=== PATIENT | male | born 1940 | race Caucasian/White ===

== ENCOUNTER → 2016-06-21 | Outpatient (CLI) | payer BC ==
[~2016-06-21] MED LIST: ASPCH81; SIMV40TA2 PO
== END | disposition home or self-care (01) ==
LOC: C.LAB 14:18
PROVIDERS: ATTEND Urology
DX: N40.1 Benign prostatic hyperplasia with lower urinary tract symptoms (principal)

== ENCOUNTER → 2016-11-02 | Outpatient (CLI) | payer BC ==
[2016-11-02 09:31] LABS: BASO % 1.3 %; BASO ABS # 0.05 K/uL (0-0.2); COMPLETE YES; EOS % 3.3 %; HEMATOCRIT 47.3 % (42-52); IG% 0.3 %; LYMPH % 28.5 %; LYMPH ABS # 1.12 K/uL (1.2-3.4); MEAN CELL VOLUME 89.9 fL (80-100); MEAN CORPUSCULAR HEMOGLOBIN 30.4 pg (25-34); MEAN CORPUSCULAR HGB CONC 33.8 g/dl (32-36); MEAN PLATELET VOLUME 10.7 fL (7.4-10.4); MONO % 13.7 %; NEUT % 52.9 %; PLATELET COUNT 200 K/uL (130-400); RED BLOOD COUNT 5.26 M/uL (4.7-6.1); WHITE BLOOD COUNT 3.93 K/uL (4.8-10.8)
[2016-11-02 10:02] LABS: ALB/GLOB RATIO 1.2 (0.9-2); ALKALINE PHOSPHATASE 57 U/L (45-117); ALT/SGPT 25 U/L (12-78); AST/SGOT 14 U/L (15-37); BLOOD UREA NITROGEN 13 mg/dl (7-18); BUN/CREATININE RATIO 12.7 (10-20); CALCIUM 9.1 mg/dl (8.5-10.1); CARBON DIOXIDE 31 mmol/L (21-32); CHLORIDE 108 mmol/L (98-107); CHOLESTEROL 125 mg/dl (0-200); CHOLESTEROL/HDL RATIO 1.9; GLUCOSE 95 mg/dl (70-99); HDL CHOLESTEROL 67 mg/dl; LDL CHOLESTEROL CALCULATED 43 mg/dl; POTASSIUM 4.6 mmol/L (3.5-5.1); SODIUM 142 mmol/L (136-145); TRIGLYCERIDES 73 mg/dl (0-150); VERY LOW DENSITY LIPOPROT CALC 15 mg/dl
--- NOTE | 2016-11-14 10:58 | CODING QUERY MEDICAL NECESSITY ---
CQSUPPORTING DIAGNOSIS NEEDED A supporting diagnosis is required for the test/procedure performed on this patient in order for us to be reimbursed by the patient's insurance. Please provide a supporting diagnosis for the following test/procedure listed below next to the test name along with your signature. *If there is no additional diagnosis for this patient that would support the following test/procedure please document that below next to the test/procedure. Test(s)/Procedure(s) that require a supporting diagnosis: DOS 11/02/16 BLOOD COUNTS TEST Provider Signature: Date: Thank you Yamileth Germain Health Information Management Once completed, please kindly fax back to [phone] For questions please call [phone]
== END | disposition home or self-care (01) ==
LOC: C.LAB 08:08
PROVIDERS: ATTEND Internal Medicine
DX: Z95.5 Presence of coronary angioplasty implant and graft (principal)

== ENCOUNTER → 2017-06-15 | Outpatient (CLI) | payer BC | END | disposition home or self-care (01) | LOC: C.LAB 08:03 | PROVIDERS: ATTEND Urology | DX: R97.20 Elevated prostate specific antigen [PSA] (principal) ==

== ENCOUNTER 2020-08-26 20:27 | Inpatient (IN) ==
[2020-08-26] MEDS ORDERED: ACETAMINOPHEN 1,000 MG/100 ML VIAL IV STA (21:40)
--- NOTE | 2020-08-26 21:42 | Emergency Department Note ---
ED Visit Note This patient was seen in concert with Dr. Markham and we discussed and agreed upon the history, physical, assessment and plan. See attending's note for details. . Resident Activity Tracking Resident Involvement: Resident Care Provided Care Provided: Adult ED
[2020-08-26 21:52] LABS: Basophils # (auto) 0.03 K/uL (0-0.2); Basophils % (auto) 0.2 %; Eosinophils # (auto) 0.05 K/uL (0-0.5); Eosinophils % (auto) 0.4 %; Hemoglobin 15.9 g/dL (14.0-18.0); Immature Granulocytes # (auto) 0.03 K/uL (0.00-0.02); Immature Granulocytes % (auto) 0.2 %; Lymphocytes # (auto) 0.97 K/uL (1.2-3.4); Mean Corpuscular Hemoglobin 31.2 pg (25-34); Mean Corpuscular Hgb Conc 35.3 g/dL (32-36); Mean Corpuscular Volume 88.4 fL (80-100); Mean Platelet Volume 10.1 fL (7.4-10.4); Monocytes # (auto) 0.54 K/uL (0.11-0.59); Monocytes % (auto) 4.4 %; Neutrophils # (auto) 10.57 K/uL (1.4-6.5); Neutrophils % (auto) 86.8 %; Platelet Count 207 K/uL (130-400); RDW Coefficient of Variation 13.2 % (11.5-14.5); RDW Standard Deviation 42.6 fL (36.4-46.3); Red Blood Count 5.09 M/uL (4.7-6.1); White Blood Count 12.19 K/uL (4.8-10.8)
[2020-08-26 21:58] LABS: Alanine Aminotransferase 26 U/L (12-78); Aspartate Aminotransferase 14 U/L (15-37); BUN Creatinine Ratio 16.7 (10-20); Blood Urea Nitrogen 17 mg/dl (7-18); Calcium 8.9 mg/dl (8.5-10.1); Carbon Dioxide 27 mmol/L (21-32); Chloride 109 mmol/L (98-107); Creatinine Clr Calc Pharmacy 69.5 ml/min; Est GFR (African American) 84.2 ml/min; Est GFR (Non-African American) 72.6 ml/min; Glucose 93 mg/dl (70-99); Potassium 4.1 mmol/L (3.5-5.1); Sodium 140 mmol/L (136-145)
--- NOTE | 2020-08-26 22:10 | Emergency Department Note ---
History of Present Illness General Chief complaint: Abdominal Pain Stated complaint: ABDOMINAL PAIN Time Seen by Provider: 08/26/20 21:15 History of Present Illness Maximum Pain Intensity: 7 80-year-old male presents with a chief complaint of epigastric abdominal pain. The patient states that his symptoms started around 5 PM today. He had associated nausea. He did attempt eating but vomited shortly after eating earlier today. The patient states that Tums did not help. No diarrhea. No additional complaints at this time. Does have history of cholecystectomy, appendectomy and prostate cancer with history of radiation therapy. Home Medications Medication Instructions Recorded Confirmed Type aspirin 81 mg tablet,delayed 81 mg PO DAILY 07/02/18 07/29/20 History release (Aspir-) cyanocobalamin (vitamin B-12) 1,000 mcg PO DAILY 07/02/18 07/29/20 History 1,000 mcg tablet (Vitamin B-12) amlodipine 5 mg tablet 5 mg PO DAILY #90 tab 05/15/20 07/29/20 Rx atorvastatin 40 mg tablet 40 mg PO DAILY #90 tab 07/20/20 07/29/20 Rx Allergies Allergy/AdvReac Type Severity Reaction Status Date / Time No Known Drug Allergies Allergy Verified 07/29/20 10:01 Past Med/Surg History Medical History Benign colonic polyp Benign colonic polyp CAD (coronary artery disease) Coronary artery disease Cyst of kidney, acquired Cyst of kidney, acquired Elevated prostate specific antigen (PSA) Enlarged prostate with lower urinary tract symptoms (LUTS) Enlarged prostate without lower urinary tract symptoms (luts) History of colon polyps Hyperlipidemia Hyperlipidemia Leukopenia Leukopenia Myocardial Infarction OCCURED AROUND . PT WAS SEEN IN [facility] AND HAD A CARDIAC CATH COMPLETED WITH STENT X1. Organic impotence Postural lightheadedness Prostate cancer (08/28/18) GS 3+3 (08/28/2018) s/p XRT 7000cGy (completed 11/15/2018). Prostate cancer Diagnosed 08/28/18 - 3+3 Status post insertion of drug-eluting stent into left anterior descending (LAD) artery Surgical History History of appendectomy 2018-11 History of cardiac cath 6-7 YEARS AGO. [facility]. PT HAS STENT IN PLACE. History of colonoscopy 2019 S/P laparoscopic cholecystectomy Family History Mother , Passed age 89 of unknown/old age Prostate cancer Father , Passed age 88/89 of [place] Lung cancer, Onset Age: 87 Heavy Smoker History of alcohol abuse Myocardial infarction Daughter No problems noted. 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 How many Children do You have: 1 Feels Safe at Home: Yes Childhood Exposure to Second-Hand Smoke: Yes caffeine: Yes (1 cup of coffee/day ) during the past year weight has: remained stable Dental Care, Regularly: Yes Physical Activity Frequency: 1-2 Times per Week Seatbelt Use: always Sunscreen Use: No Assistive Devices: None Review of Systems As above otherwise negative for 10 systems Physical Exam Vital Signs Vital Signs - 24 hr 08/26/20 20:36 08/26/20 21:30 08/26/20 21:42 Temperature 36.7 C 36.8 C Temperature Source Temporal Artery Scan Oral Pulse Rate 78 72 Pulse Rate [Apical] 68 Pulse Rate from SpO2 Sensor 72 Pulse Rhythm Regular Pulse Rhythm [Apical] Regular Pulse Strength Normal Pulse Strength [Apical] Normal Respiratory Rate 16 14 18 Respiratory Effort / Characteristics Non-Labored Non-Labored Respiratory Depth Normal Normal Respiratory Pattern Regular Regular Blood Pressure 164/82 H 153/74 H Blood Pressure [Left Arm] 161/77 H Blood Pressure Mean 109 100 Blood Pressure Mean [Left Arm] 105 Blood Pressure Position Standing Blood Pressure Position [Left Arm] Lying Pulse Oximetry 95 93 95 Oxygen Delivery Method Room Air Room Air Sepsis Recent Fever Within 48 Hours No Sepsis New/Unexplained Change in Mental Status N/A Sepsis Action Taken by Nursing No Action Required 08/26/20 22:00 08/26/20 23:00 Temperature Temperature Source Pulse Rate 72 Pulse Rate [Apical] Pulse Rate from SpO2 Sensor 72 Pulse Rhythm Pulse Rhythm [Apical] Pulse Strength Pulse Strength [Apical] Respiratory Rate 22 Respiratory Effort / Characteristics Non-Labored Spontaneous Respiratory Depth Normal Respiratory Pattern Blood Pressure 160/79 H Blood Pressure [Left Arm] Blood Pressure Mean 106 Blood Pressure Mean [Left Arm] Blood Pressure Position Blood Pressure Position [Left Arm] Pulse Oximetry 95 Oxygen Delivery Method Room Air Sepsis Recent Fever Within 48 Hours Sepsis New/Unexplained Change in Mental Status Sepsis Action Taken by Nursing CONSTITUTIONAL/VITAL SIGNS: Reviewed / noted above. GENERAL: Non-toxic in appearance. INTEGUMENTARY: Warm, dry, and [address]. HEAD: Normocephalic. EYES: without scleral icterus or trauma. ENT/OROPHARYNX: clear and moist. LYMPHADENOPATHY/NECK: Is supple without lymphadenopathy or meningismus. RESPIRATORY: Lungs clear and equal. CARDIOVASCULAR: Regular rate and rhythm. GI/ABDOMEN: Distended with decreased bowel sounds. Diffuse abdominal tenderness greatest in the epigastric area.. EXTREMITIES: Warm and well perfused. BACK: No CVA tenderness. NEUROLOGICAL: Intact without focal deficits. PSYCHIATRIC: normal affect. MUSCULOSKELETAL: Normally developed with good muscle tone. TRIAGE NURSING DOCUMENTATION REVIEWED. Course Administered Medications Discontinued Medications Acetaminophen (Ofirmev) 1,000 mg in 100 mls @ 400 mls/hr IV NOW STA Stop: 08/26/20 21:54 Last Infusion: 08/26/20 22:19 Dose: 0 mls/hr Documented by: [id number] Admin: 08/26/20 22:04 Dose: 400 mls/hr Documented by: [id number] Ioversol (Optiray 320 100ml) 100 ml IV ONCE ONE Stop: 08/26/20 22:34 Last Admin: 08/26/20 22:33 Dose: 93 ml Documented by: [id number] Medical Decision Making Differential Diagnosis Differential considered: pancreatitis, hepatitis, acute cholecystitis, AAA, UTI, pyelonephritis, kidney stones, appendicitis, diverticulitis, shingles, bowel obstruction, mesenteric ischemia, intussusception,hernia, testicular torsion, ovarian torsion, ruptured ovarian cyst,ectopic , . Medical Records Attestation: I reviewed the patient's medical records. Home Medications Current Medication List: was personally reviewed by me Laboratory Data Result diagrams: 08/26/20 21:18 08/26/20 21:18 Lab Results 08/26/20 08/26/20 Range/Units 21:18 21:18 WBC 12.19 H (4.8-10.8) K/uL RBC 5.09 (4.7-6.1) M/uL Hgb 15.9 (14.0-18.0) g/dL Hct 45.0 (42-52) % MCV 88.4 (80-100) fL MCH 31.2 (25-34) pg MCHC 35.3 (32-36) g/dL RDW Std Deviation 42.6 (36.4-46.3) fL RDW Coeff of [place] 13.2 (11.5-14.5) % Plt Count 207 (130-400) K/uL MPV 10.1 (7.4-10.4) fL Immature Gran % (Auto) 0.2 % Neut % (Auto) 86.8 % Lymph % (Auto) 8.0 % [place] % (Auto) 4.4 % Eos % (Auto) 0.4 % Baso % (Auto) 0.2 % Neut # (Auto) 10.57 H (1.4-6.5) K/uL Lymph # (Auto) 0.97 L (1.2-3.4) K/uL [place] # (Auto) 0.54 (0.11-0.59) K/uL Eos # (Auto) 0.05 (0-0.5) K/uL Baso # (Auto) 0.03 (0-0.2) K/uL Immature Gran # (Auto) 0.03 H (0.00-0.02) K/uL Sodium 140 (136-145) mmol/L Potassium 4.1 (3.5-5.1) mmol/L Chloride 109 H (98-107) mmol/L Carbon Dioxide 27 (21-32) mmol/L Anion Gap 4.0 (3-11) BUN 17 (7-18) mg/dl Creatinine 0.99 (0.6-1.4) mg/dl Est Cr Clr Drug Dosing 69.5 ml/min Est GFR ( Amer) 84.2 ml/min Est GFR (Non-Af Amer) 72.6 ml/min BUN/Creatinine Ratio 16.7 (10-20) Glucose 93 (70-99) mg/dl Calcium 8.9 (8.5-10.1) mg/dl Total Bilirubin 1.4 H (0.2-1) mg/dl AST 14 L (15-37) U/L ALT 26 (12-78) U/L Alkaline Phosphatase 62 (45-117) U/L Troponin I < 0.015 (0-0.045) ng/ml Total Protein 7.2 (6.4-8.2) gm/dl Albumin 4.0 (3.4-5.0) gm/dl Globulin 3.2 (2.5-4.0) gm/dl Albumin/Globulin Ratio 1.3 (0.9-2) Lipase 24607 H (73-393) U/L Imaging Data Radiologist's Impression: Abdomen/Pelvis CT 08/26/20 21:46 CT SCAN OF THE ABDOMEN AND PELVIS WITH IV CONTRAST CLINICAL HISTORY: Epigastric abdominal pain. COMPARISON STUDY: Abdominal CT dated 08/06/2012. TECHNIQUE: Following the IV administration of 93 cc of Optiray 320, CT scan of the abdomen and pelvis is performed from the lung bases to the proximal femora. Images are reviewed in the axial, sagittal, and coronal planes. IV contrast was administered without complication. A dose lowering technique was utilized adhering to the principles of ALARA. CT DOSE: 354.54 mGy.cm FINDINGS: Lung bases: The heart is mildly enlarged and without pericardial effusion. There are coronary artery calcifications. A small hiatal hernia is noted. Emphysematous change is noted at the lung bases. There is bibasilar s carring/atelectasis. No airspace consolidation or pleural effusion is identified. Liver: The contrast-enhanced liver is normal in size, contour, and attenuation. There is mild to moderate intrahepatic biliary ductal dilatation. The hepatic veins and portal veins are patent. A subcentimeter hypodensity in the right lobe likely represents a cyst but is too small for definitive characterization. This is been present dating back to 2012 and is of doubtful significance. Gallbladder: Surgically absent. Spleen: Normal in size and attenuation. Pancreas: The pancreas appears enlarged and edematous. There is peripancreatic inflammation and fluid consistent with acute pancreatitis. The gland enhances homogeneously. No organized peripancreatic fluid collection is identified. The splenic vein is patent. Adrenal glands: Unremarkable. Kidneys: The contrast enhanced kidneys demonstrate cortical atrophy and are without hydronephrosis. The kidneys enhance symmetrically. A subcentimeter cortical hypodensity arising from the interpolar right kidney likely represents a cyst but is too small for definitive characterization. Abdominal vasculature: There is advanced atherosclerotic calcification and mild ectasia of the abdominal aorta. Bowel: There is moderate constipation. No bowel obstruction is seen. There is advanced colonic diverticulosis without CT evidence of acute diverticulitis. The appendix is not identified and reported surgically absent. Peritoneum: There is no intraperitoneal free air or abdominal ascites. There is a fat-containing umbilical hernia. Lymphadenopathy: None. Pelvic viscera: The prostate gland is markedly enlarged and heterogeneous, measuring 6.8 cm transverse diameter. Metallic clips are noted in the prostate. There is medial hypertrophy. The bladder wall is thickened and trabeculated indicating chronic outlet obstruction. Pericystic inflammation is noted. Skeletal structures: The skeletal structures are osteopenic. There is mild lumbosacral spondylosis. No lytic or blastic lesions are seen. IMPRESSION: 1. Findings are consistent with acute pancreatitis. Correlate with clinical fin dings and serum amylase/lipase levels. 2. The pancreas enhances homogeneously and there is no organized peripancreatic fluid collection. 3. There is mild to moderate intrahepatic biliary ductal dilatation, nonspecific noting status post cholecystectomy. 4. The prostate gland is markedly enlarged and heterogeneous. 5. There is pericystic inflammation. Correlate with clinical findings and urinal ysis. 6. Moderate constipation. 7. Advanced colonic diverticulosis without CT evidence of acute diverticulitis. 8. Cardiomegaly. 9. Additional findings as above. ACT 112: Negative or not required by law. Electronically signed by: Nabil Galvez M.D. 08/26/2020 10:45 PM MDM Narrative Patient presents with diffuse abdominal pain primarily epigastric area that started around 5 PM. His abdominal exam reveals distention and quiet bowel sounds. He has not passed any gas since this morning. CBC and chemistry panel did not show any significant abnormalities. Lipase is 27,614. CT scan shows findings suggestive of acute pancreatitis. EKG shows a normal sinus rhythm at a rate of 70 with right bundle branch block. The patient was told the results of the test. He will be seen by the hospitalist for further inpatient evaluation. Impression & Plan Acute pancreatitis Discharge Plan Visit Data Chief Complaint: Abdominal Pain Stated Complaint: ABDOMINAL PAIN ED Provider: Ismael Markham ED Midlevel Provider: Gala Hannon Discharge Problem: Acute pancreatitis Patient Disposition: Being Evaluated by Hospitalist Discharge Instructions Activity Restrictions/Additional Instructions: You came to the [facility] Emergency Department for evaluation of abdominal pain. Forms Stand Alone Forms: My [facility], [facility] Emergency Department, Important Visit Information Prescriptions Prescriptions: No Action amlodipine 5 mg tablet 5 mg PO DAILY Qty: 90 RF: 3 atorvastatin 40 mg tablet 40 mg PO DAILY Qty: 90 RF: 3 cyanocobalamin (vitamin B-12) [Vitamin B-12] 1,000 mcg Tablet 1,000 mcg PO DAILY RF: 0 aspirin [Aspir-81] 81 mg Tablet,Delayed Release (Dr/Ec) 81 mg PO DAILY RF: 0 Referrals Referrals: Chalo Barnes MD [Primary Care Provider] -
[2020-08-26 22:12] LABS: Albumin Globulin Ratio 1.3 (0.9-2); Alkaline Phosphatase 62 U/L (45-117); Bilirubin,Total 1.4 mg/dl (0.2-1); Globulin 3.2 gm/dl (2.5-4.0); Total Protein 7.2 gm/dl (6.4-8.2); Troponin I < 0.015 ng/ml (0-0.045)
[2020-08-26] MEDS ORDERED: OPTIRAY 320 100ml IV ONE (22:33)
--- NOTE | 2020-08-26 22:46 | CT Scan Report ---
CT SCAN OF THE ABDOMEN AND PELVIS WITH IV CONTRAST CLINICAL HISTORY: Epigastric abdominal pain. COMPARISON STUDY: Abdominal CT dated 08/06/2012. TECHNIQUE: Following the IV administration of 93 cc of Optiray 320, CT scan of the abdomen and pelvi s is performed from the lung bases to the proximal femora. Images are reviewed in the axial, sagittal , and coronal planes. IV contrast was administered without complication. A dose lowering technique wa s utilized adhering to the principles of ALARA. CT DOSE: 354.54 mGy.cm FINDINGS: Lung bases: The heart is mildly enlarged and without pericardial effusion. There are coronary artery calcifications. A small hiatal hernia is noted. Emphysematous change is noted at the lung bases. Ther e is bibasilar scarring/atelectasis. No airspace consolidation or pleural effusion is identified. Liver: The contrast-enhanced liver is normal in size, contour, and attenuation. There is mild to mode rate intrahepatic biliary ductal dilatation. The hepatic veins and portal veins are patent. A subcent imeter hypodensity in the right lobe likely represents a cyst but is too small for definitive charact erization. This is been present dating back to 2012 and is of doubtful significance. Gallbladder: Surgically absent. Spleen: Normal in size and attenuation. Pancreas: The pancreas appears enlarged and edematous. There is peripancreatic inflammation and fluid consistent with acute pancreatitis. The gland enhances homogeneously. No organized peripancreatic fl uid collection is identified. The splenic vein is patent. Adrenal glands: Unremarkable. Kidneys: The contrast enhanced kidneys demonstrate cortical atrophy and are without hydronephrosis. T he kidneys enhance symmetrically. A subcentimeter cortical hypodensity arising from the interpolar ri ght kidney likely represents a cyst but is too small for definitive characterization. Abdominal vasculature: There is advanced atherosclerotic calcification and mild ectasia of the abdomi nal aorta. Bowel: There is moderate constipation. No bowel obstruction is seen. There is advanced colonic divert iculosis without CT evidence of acute diverticulitis. The appendix is not identified and reported segundo rgically absent. Peritoneum: There is no intraperitoneal free air or abdominal ascites. There is a fat-containing umbi lical hernia. Lymphadenopathy: None. Pelvic viscera: The prostate gland is markedly enlarged and heterogeneous, measuring 6.8 cm transvers e diameter. Metallic clips are noted in the prostate. There is medial hypertrophy. The bladder wall i s thickened and trabeculated indicating chronic outlet obstruction. Pericystic inflammation is noted. Skeletal structures: The skeletal structures are osteopenic. There is mild lumbosacral spondylosis. N o lytic or blastic lesions are seen. IMPRESSION: 1. Findings are consistent with acute pancreatitis. Correlate with clinical findings and serum amylas e/lipase levels. 2. The pancreas enhances homogeneously and there is no organized peripancreatic fluid collection. 3. There is mild to moderate intrahepatic biliary ductal dilatation, nonspecific noting status post c holecystectomy. 4. The prostate gland is markedly enlarged and heterogeneous. 5. There is pericystic inflammation. Correlate with clinical findings and urinalysis. 6. Moderate constipation. 7. Advanced colonic diverticulosis without CT evidence of acute diverticulitis. 8. Cardiomegaly. 9. Additional findings as above. ACT 112: Negative or not required by law. Electronically signed by: Nabil Galvez M.D. 08/26/2020 10:45 PM
[2020-08-26 22:47] LABS: Lipase 27614 U/L (73-393)
[2020-08-27] MEDS ORDERED: ONDANSETRON INJ 2 MG/ML 2 ML VIAL IV PRN (00:43)
[2020-08-27] MEDS ORDERED: MoRPHine SULFATE 4 MG/ML 1 ML CARP\\VIAL IV PRN (00:43)
[2020-08-27] MEDS ORDERED: LACTATED RINGER'S 1,000 ML IV ONE (00:43)
--- NOTE | 2020-08-27 00:49 | History & Physical Report ---
Date of Service August 27, 2020 Assessment & Plan (1) Acute pancreatitis: (2) Coronary artery disease: (3) Hyperlipidemia: (4) Enlarged prostate with lower urinary tract symptoms (LUTS): Plan: 80-year-old male past medical history significant for CAD s/p stent, prostate cancer, BPH, hypertension, hyperlipidemia admitted for acute pancreatitis of unknown cause. Acute pancreatitis: Presented to ER with abdominal pain since 5 PM with associated nausea and vomiting. Has a history of cholecystectomy. Drinks 1 beer daily, this history is corroborated by his . Lipase level elevated to 27,614. White count mildly elevated to 12.19. LFTs normal. CTAP shows enlarged and edematous pancreas with peripancreatic inflammation and fluid consistent with acute pancreatitis. No peripancreatic fluid collections. We will give patient LR 1 L bolus now, followed by LR at 150 cc/hr. Will keep n.p.o. and advance diet as tolerated. Zofran as needed for nausea, morphine as needed for pain. Repeat lab work in the morning to include lipase, CMP, CBC. BPH, prostate cancer: History of prostate cancer diagnosed 2 years ago, s/p radiation therapy. Most recent PSA 0.397. No urinary complaints, fevers or chills. CTAP shows that prostate gland is markedly enlarged and heterogenous (6.8 cm in transverse diameter). Thickened bladder wall indicating chronic outlet obstruction. Can consider medication such as tamsulosin moving forward. CAD, hypertension, hyperlipidemia: History of CAD s/p stent, follows with Dr. Herbert with cardiology. Last echocardiogram performed in 2016 per EMR shows normal EF. Patient is not on any diuretic therapies. Continue statin, aspirin, amlodipine. CODE STATUS: Full code FEN: N.p.o., LR 1 L bolus now, with LR at 150 cc/h following DVT prophylaxis: Heparin subcu every 12 hours Dispo: Med/Surg with telemetry History of Present Illness Chief Complaint: abdominal pain Primary Care Provider: Chalo Barnes MD 80-year-old male past medical history significant for CAD status post stent, prostate cancer, BPH, hypertension, hyperlipidemia presented to the ER for abdominal pain with associated nausea and vomiting since 5 PM today. No recent fevers or chills, sick contacts, intake of spoiled food, shortness of breath, chest pain, dizziness or headaches, diarrhea. Patient denies urinary symptoms such as hematuria, urinary urgency or frequency, dysuria. In the ER patient's lab work revealed lipase elevated to 27,000, and a CTAP which showed findings suggestive of pancreatitis. Was also incidentally noted to have markedly enlarged prostate. Hospitalist service was consulted for admission. Allergies Allergy/AdvReac Type Severity Reaction Status Date / Time No Known Drug Allergies Allergy Verified 07/29/20 10:01 Home Medications Medication Instructions Recorded Confirmed Type cyanocobalamin (vitamin B-12) 1,000 mcg PO DAILY 07/02/18 08/27/20 History 1,000 mcg tablet (Vitamin B-12) amlodipine 5 mg tablet 5 mg PO DAILY #90 tab 05/15/20 08/27/20 Rx atorvastatin 40 mg tablet 40 mg PO DAILY #90 tab 07/20/20 08/27/20 Rx aspirin 81 mg capsule,delayed 81 mg PO DAILY 08/27/20 08/27/20 History release Past Med/Surg History Medical History Benign colonic polyp Benign colonic polyp CAD (coronary artery disease) Coronary artery disease Cyst of kidney, acquired Cyst of kidney, acquired Elevated prostate specific antigen (PSA) Enlarged prostate with lower urinary tract symptoms (LUTS) Enlarged prostate without lower urinary tract symptoms (luts) History of colon polyps Hyperlipidemia Hyperlipidemia Leukopenia Leukopenia Myocardial Infarction OCCURED AROUND . PT WAS SEEN IN [place] AND HAD A CARDIAC CATH COMPLETED WITH STENT X1. Organic impotence Postural lightheadedness Prostate cancer (08/28/18) GS 3+3 (08/28/2018) s/p XRT 7000cGy (completed 11/15/2018). Prostate cancer Diagnosed 08/28/18 - 3+3 Status post insertion of drug-eluting stent into left anterior descending (LAD) artery Surgical History History of appendectomy 2018- History of cardiac cath 6-7 YEARS AGO. [facility]. PT HAS STENT IN PLACE. History of colonoscopy 2019 S/P laparoscopic cholecystectomy Family History Mother , Passed age 89 of unknown/old age Prostate cancer Father , Passed age 88/89 of [place] Lung cancer, Onset Age: 87 Heavy Smoker History of alcohol abuse Myocardial infarction Daughter No problems noted. 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 How many Children do You have: 1 Feels Safe at Home: Yes Safety Concerns: Feels Safe At This Time Childhood Exposure to Second-Hand Smoke: Yes caffeine: Yes (1 cup of coffee/day ) during the past year weight has: remained stable Dental Care, Regularly: Yes Physical Activity Frequency: 1-2 Times per Week Seatbelt Use: always Sunscreen Use: No Assistive Devices: Glasses Review of Systems Review of Systems: All systems reviewed & are unremarkable except as noted in HPI & below Constitutional: + malaise; no fever and no chills Respiratory: no cough and no dyspnea Cardiovascular: no chest pain, no palpitations and no edema Gastrointestinal: + abdominal pain (epigastric) and + nausea; no vomiting, no constipation and no diarrhea/loose stools Genitourinary: no dysuria, no urinary frequency, no hematuria or no urinary urgency Physical Exam Constitutional: WD/WN, vitals as above Eyes: PERRL, conjunctivae normal, anicteric sclerae ENMT: external ear and nose normal, oropharynx normal Neck: normal visual inspection Respiratory: normal respiratory effort, lungs clear to auscultation Cardiovascular: RRR, no murmur, no edema Gastrointestinal (Abdomen): Inspection/Auscultation: + abdomen distended and normal bowel sounds Percussion/Palpation: + abdomen tender (epigastric, mild) and abdomen soft; no guarding Musculoskeletal: no cyanosis or clubbing, extremities motor strength 5/5 Skin: no rashes, warm and dry Neurologic: Normal speech, no focal motor deficits Psychiatric: A+Ox3, euthymic affect Results & Data Results & Data ([facility]) Vital Signs (Past 12 Hours) Vital Signs Temp Pulse Pulse Resp BP BP Pulse Ox 08/26/20 23:00 63 21 155/75 H 94 08/26/20 22:50 64 17 161/79 H 95 08/26/20 22:00 72 22 160/79 H 95 08/26/20 21:42 36.8 C 68 18 161/77 H 95 08/26/20 21:30 72 14 153/74 H 93 08/26/20 20:36 36.7 C 78 16 164/82 H 95 Code Status & VTE Plan VTE Prophylaxis Plan VTE Prophylaxis will be ordered: Yes Supervising Physician Co-Signing Physician Notes Attending addendum: I have physically seen this patient, have supervised the MARCOS's activities, and agree with the H&P unless as otherwise noted. Assessment and Plan: Acute pancreatitis- Cause of abdominal pain Status post cholecystectomy Reportedly only drinks 1 beer daily Initial lipase 27,614, follow serially Normal LFTs Likely idiopathic Place on IV fluid LR bolus protocol 30 mils per kilo, then LR 150 mils per hour Prostate cancer status post radiation therapy/chronic bladder outlet obstruction-as noted on CT If outflow issues this admission, start tamsulosin 0.4 mg at bedtime, otherwise follow-up with urology CAD/hypertension/coronary stent- Continue aspirin and amlodipine. Remaining orders and notations as noted Resident Activity Tracking Resident Involvement: Resident Care Provided Care Provided: Adult Hospital Medicine (1) Coronary artery disease Associated angina: without angina Coronary Disease-Associated Artery/Lesion type: [place] artery [place] vs. transplanted heart: solomon heart Qualified Code(s): I25.10 - Atherosclerotic heart disease of solomon coronary artery without angina pectoris (2) Hyperlipidemia Hyperlipidemia type: pure hypercholesterolemia Qualified Code(s): E78.00 - Pure hypercholesterolemia, unspecified; E78.0 - Pure hypercholesterolemia (3) Acute pancreatitis Acute pancreatitis complication: unspecified Pancreatitis type: unspecified pancreatitis type Qualified Code(s): K85.90 - Acute pancreatitis without necrosis or infection, unspecified
[2020-08-27] MEDS: LACTATED RINGER'S 1,000 ML IV SCH ×4 (01:00→22:14)
[2020-08-27 01:23] LABS: Appearance Urine Clear (Clear); Bilirubin Urine Negative (Negative); Blood Urine Negative (Negative); Color Urine Yellow; Glucose Urine UA Negative (Negative); Ketones Urine 1+ (Negative); Leukocyte Esterase Urine Negative (Negative); Nitrite Urine Negative (Negative); Protein Urine Negative (Negative); Urobilinogen Urine Negative (Negative); pH Urine 5.5 (4.5-7.5)
[2020-08-27 01:30] LABS: Specific Gravity Urine > 1.045 (1.000-1.030)
[2020-08-27 01:45] LABS: Chol HDL Ratio 3; Cholesterol 149 mg/dl (0-200); HDL Cholesterol 57 mg/dl; LDL Cholesterol Calculated 64 mg/dl; Triglycerides 138 mg/dl (0-150); VLDL Cholesterol 28 mg/dl
[2020-08-27] MEDS ORDERED: ACETAMINOPHEN 325 MG TAB PO PRN (05:59)
[2020-08-27] MEDS ORDERED: POLYETHYLENE (MIRALAX) 17 GM PACK PO PRN (05:59)
[2020-08-27] MEDS: CYANOCOBALAMIN 500 MCG TABLET (VITAMIN B-12) PO SCH (08:58)
[2020-08-27] MEDS: ATORVASTATIN 40 MG TAB PO SCH (08:58)
[2020-08-27] MEDS: amLODIPine BESYLATE 5 MG TAB PO SCH (08:58)
[2020-08-27] MEDS: ASPIRIN 81 MG ECTAB PO SCH (08:58)
[2020-08-27] MEDS: HEPARIN SOD 5,000 UNIT/0.5 ML VIAL SQ SCH ×2 (09:00→21:29)
--- NOTE | 2020-08-27 13:54 | Electrocardiogram Report ---
Test Reason : Blood Pressure : / mmHG Vent. Rate : 070 BPM Atrial Rate : 070 BPM P-R Int : 172 ms QRS Dur : 146 ms QT Int : 446 ms P-R-T Axes : 023 027 010 degrees QTc Int : 481 ms Normal sinus rhythm Right bundle branch block Abnormal ECG When compared with ECG of 03-MAY-2010 04:41, Right bundle branch block is now Present Confirmed by Issa Freitas ([id number]) on 08/27/2020 1:54:24 PM Referred By: REFERRED SELF Confirmed By:Mehdi Freitas
[2020-08-27] MEDS: METOPROLOL TARTRATE 1 MG/ML VIAL IV SCH ×2 (17:27→23:43)
--- NOTE | 2020-08-27 19:27 | Billing Data ---
Date of Service August 27, 2020 Coding Level of Care Code 63326 Initial Inpt Care Lvl 3
--- NOTE | 2020-08-27 21:04 | Communication Note ---
Date of Service: August 27, 2020 Saw patient in the early afternoon. He reported improved abdominal pain but certainly not resolved. No further N/V. No passage of flatus; he feels bloated. Denied any dyspnea or cp. /daughter at bedside. They stated he had a lap kimi in [place] in February 2020. No ERCP to their knowledge. He drinks 1 etoh beverage or less per night. No recent illnesses. VSS, BPs elevated gen - NAD neck - no JVD mouth - MM dry heart - RRR, s1 s2 lungs - CTA b/l abd - mildly distended, BS+ but decreased, mildly tender epigastric region ext - no edema labs from admission reviewed A/P: Acute pancreatitis - etiology thus far uncertain. MRCP ordered - r/o choledocholithiasis, etc. IVF (LR), pain meds, anti-emetics, serial labs, etc. May have early ileus from the pancreatitis - ambulate as much as possible. Cam Shaw MD
[2020-08-28] MEDS: LACTATED RINGER'S 1,000 ML IV SCH ×3 (04:55→20:45)
[2020-08-28] MEDS: METOPROLOL TARTRATE 1 MG/ML VIAL IV SCH ×3 (05:42→20:59)
[2020-08-28 07:17] LABS: Hemoglobin 14.4 g/dL (14.0-18.0); Mean Corpuscular Hemoglobin 31.3 pg (25-34); Mean Corpuscular Hgb Conc 34.3 g/dL (32-36); Mean Corpuscular Volume 91.3 fL (80-100); Mean Platelet Volume 10.2 fL (7.4-10.4); Platelet Count 173 K/uL (130-400); RDW Coefficient of Variation 13.5 % (11.5-14.5); RDW Standard Deviation 45.1 fL (36.4-46.3); White Blood Count 8.46 K/uL (4.8-10.8)
[2020-08-28 07:49] LABS: BUN Creatinine Ratio 17.4 (10-20); Calcium 8.2 mg/dl (8.5-10.1); Creatinine Clr Calc Pharmacy 95.7 ml/min; Est GFR (African American) 102.4 ml/min; Est GFR (Non-African American) 88.3 ml/min; Potassium 3.6 mmol/L (3.5-5.1)
[2020-08-28 07:54] LABS: Albumin Globulin Ratio 1.1 (0.9-2); Globulin 2.8 gm/dl (2.5-4.0); Total Protein 5.8 gm/dl (6.4-8.2)
[2020-08-28] MEDS: CYANOCOBALAMIN 500 MCG TABLET (VITAMIN B-12) PO SCH (08:19)
[2020-08-28] MEDS: amLODIPine BESYLATE 5 MG TAB PO SCH (08:20)
[2020-08-28] MEDS: ATORVASTATIN 40 MG TAB PO SCH (08:20)
[2020-08-28] MEDS: HEPARIN SOD 5,000 UNIT/0.5 ML VIAL SQ SCH ×2 (08:20→21:00)
[2020-08-28] MEDS: ASPIRIN 81 MG ECTAB PO SCH (08:20)
--- NOTE | 2020-08-28 10:58 | Magnetic Resonance Report ---
MR MRCP HISTORY: 80 years-old Male acute pancreatitis/biliary ductal dilation on CT acute right upper quadra nt abdominal pain with reported pancreatitis COMPARISON: CT abdomen and pelvis 08/26/2020 TECHNIQUE: MRCP without the use of IV contrast was obtained according to institutional protocol. FINDINGS: Mild dependent bibasilar atelectasis. Mild cardiomegaly. Scattered areas of decreased T2 signal noted throughout the spleen which is nonspecific and likely benign. Unremarkable adrenal glands. Nonspecif ic bilateral perinephric stranding. Exophytic 11 mm cyst of the posterior inferior pole right kidney. No hydronephrosis. No aortic aneurysm. No adenopathy. No bowel dilation. Small hiatal hernia. 8 mm T2 hyperintense lesion of the right hepatic lobe is suggestive of a probable cyst. Mild intrahep atic and extrahepatic biliary ductal dilation is noted with the common bile duct measuring up to 7 mm . Study is motion degraded. Cholecystectomy. Interstitial and peripancreatic edema with small amount of fluid within the lesser sac. Small right ascites tracks along the pericolic gutters and also withi n the perihepatic space. No pancreatic ductal dilation. There is a 6 mm area of decreased T2 signal n oted within the distal common bile duct. IMPRESSION: 1. Findings compatible with acute interstitial edematous pancreatitis. No pancreatic ductal dilation. 2. Cholecystectomy with mild intrahepatic and extrahepatic biliary ductal dilation. 3. 6 mm filling defect within the distal common bile duct is suspicious for choledocholithiasis. Findings were discussed with Dr. Rm on 08/28/2020 at 10:54 AM ACT 112: Negative or not required by law. The above report was generated using voice recognition software. It may contain grammatical, syntax o r spelling errors. Electronically signed by: Donnell Walker M.D. 08/28/2020 10:57 AM
--- NOTE | 2020-08-28 11:06 | Gastrointestinal Consultation ---
Date of Consultation August 28, 2020 Assessment & Plan (1) Choledocholithiasis: Plan for ERCP this afternoon by Dr. Efren Bonner. Keep NPO, continue LR. Supervising Physician Co-Signing Physician Notes I saw and evaluated the patient. He presented with abdominal pain and had an MRCP which seems to indicate evidence of choledocholithiasis. The patient did have a recent cholecystectomy performed and initially been doing well. Physical examination No obvious distress Mild right upper quadrant tenderness Impression: Patient with retained common bile duct stones after a recent cholecystectomy. We will proceed with ERCP for biliary decompression today. We have discussed the risks of the procedure to include bleeding, infection, perforation, pancreatitis and failed biliary cannulation. Plan ERCP today History of Present Illness Reason for Consultation: Choledocholithiasis Requesting Physician: Dr. Rm Attending Physician: Cam Shaw History of Present Illness Mr. Pan Crawford is a 80 yr old male pt of Dr. Barnes. He carries a hx of CAD (LAD stent approx 5 yrs ago, on ASA, no anticoagulants or antiplatelets), prostate cancer S/P radiation. He is S/P cholecystectomy in Mar 2020 [place] where he pandey. He presented to [facility] ED on 08/26 in the evening after he experienced upper abdomen pain after supper. Imaging and elevated lipase consist with acute pancreatitis. MRCP today with suggestion of a 6 mm filling defect within the distal common bile duct. He denies any jaundice, icterus, fevers, chills or sweats and today feels well with minimal diffuse abdominal pain today, mostly from ileus but he is passing gas and the upper abdomen pain that brought him to the ED 2 days ago is nearly resolved. He is awake, alert, oriented afebrile and other than mild hypertension at 162/72, he is hemodynamically stable. Allergies Allergy/AdvReac Type Severity Reaction Status Date / Time No Known Drug Allergies Allergy Verified 07/29/20 10:01 Home Medications Medication Instructions Recorded Confirmed Type cyanocobalamin (vitamin B-12) 1,000 mcg PO DAILY 07/02/18 08/27/20 History 1,000 mcg tablet (Vitamin B-12) amlodipine 5 mg tablet 5 mg PO DAILY #90 tab 05/15/20 08/27/20 Rx atorvastatin 40 mg tablet 40 mg PO DAILY #90 tab 07/20/20 08/27/20 Rx aspirin 81 mg capsule,delayed 81 mg PO DAILY 08/27/20 08/27/20 History release Patient History Medical History Benign colonic polyp Benign colonic polyp CAD (coronary artery disease) Coronary artery disease Cyst of kidney, acquired Cyst of kidney, acquired Elevated prostate specific antigen (PSA) Enlarged prostate with lower urinary tract symptoms (LUTS) Enlarged prostate without lower urinary tract symptoms (luts) History of colon polyps Hyperlipidemia Hyperlipidemia Leukopenia Leukopenia Myocardial Infarction OCCURED AROUND . PT WAS SEEN IN [place] AND HAD A CARDIAC CATH COMPLETED WITH STENT X1. Organic impotence Postural lightheadedness Prostate cancer (08/28/18) GS 3+3 (08/28/2018) s/p XRT 7000cGy (completed 11/15/2018). Prostate cancer Diagnosed 08/28/18 - 3+3 Status post insertion of drug-eluting stent into left anterior descending (LAD) artery Surgical History History of appendectomy 2018- History of cardiac cath 6-7 YEARS AGO. [facility]. PT HAS STENT IN PLACE. History of colonoscopy 2019 S/P laparoscopic cholecystectomy Family History Mother , Passed age 89 of unknown/old age Prostate cancer Father , Passed age 88/89 of [place] Lung cancer, Onset Age: 87 Heavy Smoker History of alcohol abuse Myocardial infarction Daughter No problems noted. 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 How many Children do You have: 1 Feels Safe at Home: Yes Safety Concerns: Feels Safe At This Time Childhood Exposure to Second-Hand Smoke: Yes caffeine: Yes (1 cup of coffee/day ) during the past year weight has: remained stable Dental Care, Regularly: Yes Physical Activity Frequency: 1-2 Times per Week Seatbelt Use: always Sunscreen Use: No Assistive Devices: Glasses Review of Systems Review of Systems: ROS: Gen: Denies weakness, fevers, weight loss Eyes: No eye redness, or pain, no recent vision changes Resp: No SOB, no cough Cardio: No palpitations/irregular beats, no chest pain GI: as per HPI, otherwise (-) : Denies pain on urination Skin: No jaundice, itching or new rashes Physical Exam Constitutional: WD/WN, vitals as above ENMT: external ear and nose normal, oropharynx normal Neck: trachea midline, no thyromegaly Respiratory: normal respiratory effort, lungs clear to auscultation Cardiovascular: RRR, no murmur, no edema Gastrointestinal (Abdomen): Inspection/Auscultation: abdomen normal to inspection, + abdomen distended (mildly) and + hypoactive bowel sounds; no abdominal edema Skin: no rashes, warm and dry Neurologic: PERRL, EOMI, accommodation nl, no face palsy, no dysarthria Speech / Cognition: + abnormal cognition Psychiatric: A+Ox3, euthymic affect Lymphatic: no cervical or axillary lymphadenopathy Results & Data ([facility]) Vital Signs (Past 12 Hours) Vital Signs Temp Pulse Pulse Resp BP BP Pulse Ox 08/28/20 07:55 71 08/28/20 05:42 74 135/80 08/28/20 04:07 36.6 C 73 18 147/78 H 91 08/28/20 03:20 78 08/27/20 23:43 79 162/78 H 08/27/20 23:28 36.6 C 82 18 158/79 H 90 Laboratory Results WBC 8.4, Hb 14.4, Hct 42, Plts 173, Na 137, K 3.6, BUN 13, Cr 0.74, T Bili 3.0, AST 12, ALT 21, Alk Phos 47, lipase 1240. Diagnostic Findings MRCP 08/28/20: 1. Findings compatible with acute interstitial edematous pancreatitis. No pancreatic ductal dilation. 2. Cholecystectomy with mild intrahepatic and extrahepatic biliary ductal dilat ion. 3. 6 mm filling defect within the distal common bile duct is suspicious for choledocholithiasis. CTAP 08/27/20: 1. Findings are consistent with acute pancreatitis. Correlate with clinical findings and serum amylase/lipase levels. 2. The pancreas enhances homogeneously and there is no organized peripancreatic fluid collection. 3. There is mild to moderate intrahepatic biliary ductal dilatation, nonspecific noting status post cholecystectomy. 4. The prostate gland is markedly enlarged and heterogeneous. 5. There is pericystic inflammation. Correlate with clinical findings and urinalysis. 6. Moderate constipation. 7. Advanced colonic diverticulosis without CT evidence of acute diverticulitis. 8. Cardiomegaly. 9. Additional findings as above.
--- NOTE | 2020-08-28 11:06 | Hospitalist Progress Note ---
Date of Service August 28, 2020 Assessment & Plan (1) Acute pancreatitis: Plan: 2nd to gallstones as MRCP with distal CBD stone. IMPROVED biochemically and clinically. Remains NPO with IVF in place. (2) Choledocholithiasis: Plan: as seen on MRCP. GI consulted - ERCP performed by Dr Bonner. 2 CBD stones extracted, stent deployed, no evidence of cholangitis. appreciate [facility] consultation. (3) Coronary artery disease: Plan: no ischemic symptoms. (4) Hyperlipidemia: Plan: on statin (5) Enlarged prostate with lower urinary tract symptoms (LUTS): Plan: stable, no issues Plan: 1. IV abx started by GI - continue. 2. Continue IVF. 3. Recheck labs in am. 4. Hold heparin SC. 5. Start clear liquid diet. 6. Hold asa. 7. continue lopressor IV q6h. daughter updated by phone this evening. Admission and Anticipated Discharge Date Admission Date: August 27, 2020 Subjective patient reports improved/nearly resolved abdominal pain no nausea/vomiting not passing flatus yet MRCP came back showing a probable distal CBD stone during my rounds Ms Lazaro Jacinto Onofre GI DIGITAL PERFORMANCE ANALYST came to bedside to discuss ERCP tele overnight wnl Review of Systems Constitutional: no fever, no chills and no fatigue Respiratory: no cough, no dyspnea and no dyspnea on exertion Cardiovascular: no chest pain Gastrointestinal: no abdominal pain, no nausea and no vomiting Physical Exam Constitutional: well developed and well nourished; no acute distress and no altered mental status Eyes: no conjunctival abnormality and no scleral abnormality ENMT: external ear and nose normal, oropharynx normal Respiratory: normal respiratory effort, lungs clear to auscultation Cardiovascular: Rate/Rhythm: regular rate and regular rhythm Heart Sounds: normal S1 and normal S2 Vessels: posterior tibial pulses present and dorsalis pedis pulses present; no JVD Extremities: no edema Gastrointestinal (Abdomen): normal bowel sounds, soft, nontender, no hepatosplenomegaly Psychiatric: A+Ox3, euthymic affect Results & Data Results & Data ([facility]) Vital Signs (Past 12 Hours) Vital Signs Temp Pulse Pulse Resp BP BP Pulse Ox 08/28/20 07:55 71 08/28/20 05:42 74 135/80 08/28/20 04:07 36.6 C 73 18 147/78 H 91 07/16/21 03:20 78 08/27/20 23:43 79 162/78 H 08/27/20 23:28 36.6 C 82 18 158/79 H 90 Laboratory Results lipase ~1000 LFTs wnl bmp wnl MRCP - suspected choledocholithiasis PG Care Time/CCT Total # of Minutes Spent Total Time Spent with Patient: Total time spent is greater than 50% in coordination of care (as documented) at patient's floor/unit and/or counseling patient: Coding Level of Care Code 74304 Subseq Hosp Care Lvl 2 Diagnoses Acute pancreatitis K85.90 Acute pancreatitis complication: unspecified Pancreatitis type: unspecified pancreatitis type Coronary artery disease I25.10 Coronary Disease-Associated Artery/Lesion type: [place] artery [place] vs. transplanted heart: [place] heart Associated angina: without angina Hyperlipidemia E78.00; E78.0 Hyperlipidemia type: pure hypercholesterolemia Enlarged prostate with lower urinary tract symptoms (LUTS) N40.1 Choledocholithiasis K80.50 (1) Acute pancreatitis Acute pancreatitis complication: unspecified Pancreatitis type: unspecified pancreatitis type Qualified Code(s): K85.90 - Acute pancreatitis without necrosis or infection, unspecified (2) Coronary artery disease Coronary Disease-Associated Artery/Lesion type: [place] artery [place] vs. transplanted heart: [place] heart Associated angina: without angina Qualified Code(s): I25.10 - Atherosclerotic heart disease of [place] coronary artery without angina pectoris (3) Hyperlipidemia Hyperlipidemia type: pure hypercholesterolemia Qualified Code(s): E78.00 - Pure hypercholesterolemia, unspecified; E78.0 - Pure hypercholesterolemia
[2020-08-28] MEDS ORDERED: ATROPINE SULFATE 0.1 MG/ML 10ML SYR IV PRN (16:52)
[2020-08-28] MEDS ORDERED: INDOMETHACIN 50 MG SUPP PR ONE ×2 (16:52→17:27)
[2020-08-28] MEDS ORDERED: HYDROmorphone INJ 2 MG/ML SYR/VIAL IV PRN (16:52)
[2020-08-28] MEDS ORDERED: ONDANSETRON INJ 2 MG/ML 2 ML VIAL IV PRN (16:52)
[2020-08-28] MEDS ORDERED: ePHEDrine sulfate 50 MG/ML AMP IV PRN (16:52)
[2020-08-28] MEDS ORDERED: fentaNYL citrate 100 MCG/2 ML VIAL IV PRN (16:52)
--- NOTE | 2020-08-28 16:52 | Anesthesiology Consultation ---
Date of Service August 28, 2020 Assessment & Plan ASA ASA3 Proposed Anesthesia Anesthesia Type: General Risk / Benefits Reviewed With: PT / POA / Parent / Guardian, Accepts Plan and Informed Consent Obtained History Surgery Operation Date: 08/28/20 13:40 Proposed Procedures p Endoscopic Retrograde Cholangiopancreato Jacinto Bonner DO Height/Weight Height: 6 ft 2 in Weight: 82.4 kg Allergies Allergy/AdvReac Type Severity Reaction Status Date / Time No Known Drug Allergies Allergy Verified 07/29/20 10:01 Medications Home Medications Medication Instructions Recorded Confirmed Last Taken cyanocobalamin (vitamin B-12) 1,000 mcg PO DAILY 07/02/18 08/27/20 08/26/20 1,000 mcg tablet (Vitamin B-12) 0900 amlodipine 5 mg tablet 5 mg PO DAILY #90 tab 05/15/20 08/27/20 08/26/20 atorvastatin 40 mg tablet 40 mg PO DAILY #90 tab 07/20/20 08/27/20 08/26/20 aspirin 81 mg capsule,delayed 81 mg PO DAILY 08/27/20 08/27/20 08/26/20 release 0900 Active Medications Generic Name Dose Route Start Last Admin Trade Name Freq PRN Reason Stop Dose Admin Amlodipine Besylate 5 mg 08/27/20 09:00 08/28/20 08:20 Amlodipine Besylate 5 Mg Tab PO 09/26/20 08:59 5 mg DAILY VIJAYA Administration Aspirin 81 mg 08/27/20 09:00 08/28/20 08:20 Aspirin 81 Mg Ectab PO 09/26/20 08:59 81 mg DAILY VIJAYA Administration Atorvastatin Calcium 40 mg 08/27/20 09:00 08/28/20 08:20 Atorvastatin 40 Mg Tab PO 09/26/20 08:59 40 mg DAILY VIJAYA Administration Cyanocobalamin 1,000 mcg 08/27/20 09:00 08/28/20 08:19 Cyanocobalamin 500 Mcg Tablet (Vitamin B-12) PO 09/26/20 08:59 1,000 mcg DAILY VIJAYA Administration Heparin Sodium (Porcine) 5,000 units 08/27/20 09:00 08/28/20 08:20 Heparin Sod 5,000 Unit/0.5 Ml Vial SQ 09/26/20 08:59 5,000 units Q12 VIJAYA Administration Lactated Ringer's 1,000 mls @ 150 mls/hr 08/27/20 00:45 08/28/20 10:36 Lr IV 09/26/20 00:44 150 mls/hr .Q6H40M VIJAYA Administration Metoprolol Tartrate 5 mg 08/27/20 16:15 08/28/20 12:10 Metoprolol Tartrate 1 Mg/Ml Vial IV 09/26/20 16:14 5 mg Q6 VIJAYA Administration Morphine Sulfate 4 mg 08/27/20 00:43 08/27/20 05:51 Morphine Sulfate 4 Mg/Ml 1 Ml Carp\Vial IV 09/10/20 00:42 4 mg Q3H PRN Administration Moderate Pain Rating (4,5,6) Ondansetron HCl 4 mg 08/27/20 00:43 08/27/20 05:51 Ondansetron Inj 2 Mg/Ml 2 Ml Vial IV 09/26/20 00:42 4 mg Q4H PRN Administration Nausea And Vomiting NPO Date Last Intake of Fluids: 08/27/20 Time Last Intake of Fluids: 20:00 Date Last Intake of Solids: 08/26/20 Time Last Intake of Solids: 18:00 Past Medical History Medical History Benign colonic polyp Benign colonic polyp CAD (coronary artery disease) Coronary artery disease Cyst of kidney, acquired Cyst of kidney, acquired Elevated prostate specific antigen (PSA) Enlarged prostate with lower urinary tract symptoms (LUTS) Enlarged prostate without lower urinary tract symptoms (luts) History of colon polyps Hyperlipidemia Hyperlipidemia Leukopenia Leukopenia Myocardial Infarction OCCURED AROUND . PT WAS SEEN IN [facility] AND HAD A CARDIAC CATH COMPLETED WITH STENT X1. Organic impotence Postural lightheadedness Prostate cancer (08/28/18) GS 3+3 (08/28/2018) s/p XRT 7000cGy (completed 11/15/2018). Prostate cancer Diagnosed 08/28/18 - 3+3 Status post insertion of drug-eluting stent into left anterior descending (LAD) artery Exercise / Class Metabolic Activity II 4-5 Yardwork/Stairs/Walk up hill Past Family History Family History Mother , Passed age 89 of unknown/old age Prostate cancer Father , Passed age 88/89 of [place] Lung cancer, Onset Age: 87 Heavy Smoker History of alcohol abuse Myocardial infarction Daughter No problems noted. Denies family history of Ovarian cancer Breast cancer Colorectal cancer Past Surgical History Surgical History History of appendectomy 2018- History of cardiac cath 6-7 YEARS AGO. [facility]. PT HAS STENT IN PLACE. History of colonoscopy 2019 S/P laparoscopic cholecystectomy Past Anesthesia History No Hx of Anesthesia Complications and No Family Hx of Anesthesia Complications History of PONV No Hx of PONV and No Hx of Motion Sickness Social History Smoking Status: Never smoker Smoking cigarettes per day: 0 Hx Alcohol Use: No Alcohol type: beer, wine and hard liquor Hx Substance Use: No substance use type: does not use Review of Systems denies fever/cough/ colds/ chest pain/ SOB/ CARLOS denies CARLOS Physical Exam Vital Signs Last Vital Signs Temp 37 C 08/28/20 16:17 Pulse 84 08/28/20 16:17 Resp 18 08/28/20 16:17 BP 169/71 H 08/28/20 16:17 Pulse Ox 91 08/28/20 15:20 ENMT Mouth: no TMJ abnormality and no dentition abnormality Thyromental Distance: > or= 3.5 Finger Breadths Mallampati Class: II Neck neck extension not limited Respiratory normal respiratory effort; no respiratory distress Auscultation: lungs clear to auscultation bilaterally Cardiovascular Rate/Rhythm: regular rate and regular rhythm Neurologic moves all extremities Psychiatric Orientation: alert and oriented x 3 Testing Laboratory Results 08/28/20 06:42 08/28/20 06:42 Urine Color Yellow 08/27/20 00:53 Urine Appearance Clear (Clear) 08/27/20 00:53 Urine pH 5.5 (4.5-7.5) 08/27/20 00:53 Ur Specific [place] > 1.045 (1.000-1.030) H 08/27/20 00:53 Urine Protein Negative (Negative) 08/27/20 00:53 Urine Glucose (UA) Negative (Negative) 08/27/20 00:53 Urine Ketones 1+ (Negative) H 08/27/20 00:53 Urine Nitrite Negative (Negative) 08/27/20 00:53 Ur Leukocyte Esterase Negative (Negative) 08/27/20 00:53
[2020-08-28] MEDS ORDERED: CIPROFLOXACIN 400MG / 200ML D5W IV ONE (16:53)
[2020-08-28] MEDS ORDERED: fentaNYL citrate 100 MCG/2 ML VIAL ONE (17:37)
[2020-08-28] MEDS: CIPROFLOXACIN / D5W 400 MG/200 ML BAG IV SCH (17:42)
--- NOTE | 2020-08-28 18:44 | Post Operative Brief Note ---
Immediate Post Op Note v1 Date of Surgery August 28, 2020 Pre & Post Diagnosis Operation Date: 08/28/20 13:40 Pre-Op Diagnosis: COMMON BILE DUCT STONE Post-Op Diagnosis: COMMON BILE DUCT STONE, inflamed and enlarged ampulla I identified the patient and participated in the time-out.: Yes Procedure Operation Date: 08/28/20 13:40 Actual Procedures p Endoscopic Retrograde Cholangiopancreatoscopy, insertion stent, biopsy - Efren Bonner DO Surgeon Efren Bonner DO Orthodontist none Estimated Blood Loss 0 Findings Consistent with Post-Op Diagnosis
--- NOTE | 2020-08-28 18:46 | Communication Note ---
Date of Service: August 28, 2020 The patient underwent ERCP this afternoon. The procedure was set up a complicated given inflammatory changes around a very enlarged and inflamed appearing ampulla. We did place a biliary stent. The ampulla was large and edematous. Therefore several biopsies were obtained. Recommendations Continue IV hydration overnight May have clear liquids if pain-free Await pathology results Empiric antibiotic coverage for total of 5 days please Avoid use of nonsteroidals and anticoagulation for at least 72 hours Repeat ERCP to be arranged in 6 to 8 weeks
--- NOTE | 2020-08-28 18:55 | GI REPORT ---
Patient Name: Pan Crawford Procedure Date: 08/28/2020 4:46 PM Date of : 1940 Admit Type: Inpatient Age: 80 Gender: Male Attending MD: Efren Bonner DO Procedure: ERCP Providers: Efren Bonner DO Referring MD: Cam Shaw Indications: Abdominal pain of suspected biliary origin, Abnormal MRCP Medicines: General Anesthesia Complications: No immediate complications. Estimated blood loss: Minimal. Estimated Blood Loss: Estimated blood loss was minimal. Procedure: Pre-Anesthesia Assessment: - Prior to the procedure, a History and Physical was performed, and patient medications, allergies and sensitivities were reviewed. The patient's tolerance of previous anesthesia was reviewed. - The risks and benefits of the procedure and the sedation options and risks were discussed with the patient. All questions were answered and informed consent was obtained. - Patient identification and proposed procedure were verified prior to the procedure by the physician, the nurse and the legal entity controller. The procedure was verified in the procedure room. - Pre-procedure physical examination revealed no contraindications to sedation. - ASA Grade Assessment: III - A patient with severe systemic disease. - After reviewing the risks and benefits, the patient was deemed in satisfactory condition to undergo the procedure. - The anesthesia plan was to use monitored anesthesia care (MAC). - Immediately prior to administration of medications, the patient was re-assessed for adequacy to receive sedatives. - The heart rate, respiratory rate, oxygen saturations, blood pressure, adequacy of pulmonary ventilation, and response to care were monitored throughout the procedure. - The physical status of the patient was re-assessed after the procedure. After obtaining informed consent, the scope was passed under direct vision. Throughout the procedure, the patient's blood pressure, pulse, and oxygen saturations were monitored continuously. The scope was introduced through the mouth, and advanced to the duodenum and used to inject contrast into the bile duct. The ERCP was accomplished without difficulty. The patient tolerated the procedure well. Findings: The stock preparation operator film was normal. The esophagus was successfully intubated under direct vision without detailed examination of the pharynx, larynx, and associated structures, and upper GI tract. The upper GI tract was grossly normal. The major papilla was enlarged. The major papilla was congested. The major papilla was edematous. The bile duct was deeply cannulated with the short-nosed traction sphincterotome and 0.035 in Acrobat 2 guidewire (PD not cannulated nor injected today). Contrast was injected. I personally interpreted the bile duct images. Contrast extended to the hepatic ducts. The main bile duct was moderately dilated and diffusely dilated, with a stone causing an obstruction. The largest diameter was 10-12 mm. Biliary sphincterotomy was made with a monofilament Fusion OMNI sphincterotome using ERBE electrocautery. The sphincterotomy oozed blood (stopped prior to procedure completion). To discover objects, the biliary tree was swept with a 15 mm balloon starting at the bifurcation. Two stones were removed. No stones remained. Due to the excessive inflammatory changes at the ampulla, One 10 Fr by 7 cm biliary stent with a single external flap and a single internal flap was placed 7 cm into the common bile duct. Bile flowed through the stent. Shortly after placement the the stent migrated up into the biliary tree (away from the lumen of the GI tract). The stent was removed from the biliary tree using a 15 mm balloon. One 7 Fr by 4 cm biliary stent with a full external pigtail and a full internal pigtail was placed 4 cm into the common bile duct. Bile flowed through the stent. The stent was in good position. Biopsies were taken in the area of the papilla through the ERCP scope with the cold forceps for histology (the area with a pancreatic orifice was avoided). The endoscope was withdrawn from the patient. Indomethacin 100 mg was given via suppository to decrease the risk of post-ERCP pancreatitis (PEP). Impression: - The major papilla appeared to be enlarged, inflammed and congested (perhaps as result of pancreatitis and an impacted stone. - Biopsies were taken with a cold forceps for histology in the area of the papilla. - Choledocholithiasis was found. Complete removal was accomplished by biliary sphincterotomy and balloon extraction. - One double pigtail biliary stent was placed into the common bile duct. - Indomethacin given to decrease risk of post-ERCP pancreatitis. Recommendation: - Avoid aspirin and nonsteroidal anti-inflammatory medicines for 3 days. - Clear liquid diet today. - Use broad spectrum antibiotics for 5 days. - Await path results. - Repeat ERCP in 6 weeks to remove stent. Efren Bonner D.O. Efren Bonner, 08/28/2020 6:55:31 PM This report has been signed electronically. Note Initiated On: 08/28/2020 4:46 PM Number of Addenda: 0 I attest to the content of the Intraoperative Record and orders documented therein, exceptions below {[id number]}
--- NOTE | 2020-08-28 19:02 | Fluoroscopy Report ---
[place] ERCP biliary ductal CLINICAL HISTORY: ERCP IN OR COMPARISON STUDY: CT of the abdomen and pelvis August 26, 2020. MRCP August 27, 2020. FLUOROSCOPY TIME: 1 minute and 20 seconds. FLUOROSCOPIC IMAGES: 12 FINDINGS: Fluoroscopy was provided during ERCP. The common bile duct was cannulated. Balloon sweep th rough the common bile duct was performed with placement of a biliary stent. IMPRESSION: Fluoroscopy provided during ERCP with placement of a biliary stent. ACT 112: Negative or not required by law. Electronically signed by: Tone Bain M.D. 08/28/2020 7:00 PM
--- NOTE | 2020-08-28 19:26 | Anesthesiology Progress Note ---
Date of Service August 28, 2020 Anesthesia Post Procedure Vital Signs Vital Signs: Temp Pulse Pulse Pulse Resp BP BP 08/28/20 19:15 72 20 167/73 H 08/28/20 19:05 74 21 163/69 H 08/28/20 18:56 36.6 C 73 20 181/77 H 08/28/20 16:17 37 C 84 18 169/71 H 08/28/20 15:20 37.1 C 86 16 156/72 H 08/28/20 14:20 90 08/28/20 12:10 81 162/72 H 08/28/20 11:17 36.7 C 81 16 162/72 H 08/28/20 07:55 71 08/28/20 05:42 74 135/80 08/28/20 04:07 36.6 C 73 18 147/78 H 08/28/20 03:20 78 08/27/20 23:43 79 162/78 H 08/27/20 23:28 36.6 C 82 18 158/79 H 08/27/20 19:41 36.4 C L 75 16 169/75 H Pulse Ox 08/28/20 19:15 92 08/28/20 19:05 94 08/28/20 18:56 92 08/28/20 16:17 08/28/20 15:20 91 08/28/20 14:20 08/28/20 12:10 08/28/20 11:17 90 08/28/20 07:55 08/28/20 05:42 08/28/20 04:07 91 08/28/20 03:20 08/27/20 23:43 08/27/20 23:28 90 08/27/20 19:41 91 Pain Intensity Abdomen: Pain Intensity: 0 Transfer of Care Handoff Completed per policy Notes Mental Status: alert / awake / arousable and participated in evaluation Patient Amnestic to Procedure: Yes Nausea / Vomiting: adequately controlled Pain: adequately controlled Airway Patency, RR, SpO2: stable & adequate BP & HR: stable & adequate Hydration State: stable & adequate Anesthetic Complications: no major complications apparent and Pt Satisfied with anesthetic care
[2020-08-29] MEDS: METOPROLOL TARTRATE 1 MG/ML VIAL IV SCH ×3 (00:05→11:48)
[2020-08-29] MEDS: LACTATED RINGER'S 1,000 ML IV SCH ×3 (04:32→13:40)
[2020-08-29] MEDS: CIPROFLOXACIN / D5W 400 MG/200 ML BAG IV SCH (05:51)
[2020-08-29 07:39] LABS: Hematocrit (blood only) 38.7 % (42-52); Hemoglobin 13.7 g/dL (14.0-18.0); Mean Corpuscular Hemoglobin 30.9 pg (25-34); Mean Corpuscular Hgb Conc 35.4 g/dL (32-36); Mean Corpuscular Volume 87.2 fL (80-100); Platelet Count 154 K/uL (130-400); RDW Coefficient of Variation 12.8 % (11.5-14.5); RDW Standard Deviation 41.4 fL (36.4-46.3); Red Blood Count 4.44 M/uL (4.7-6.1); White Blood Count 7.06 K/uL (4.8-10.8)
[2020-08-29 08:01] VITALS: TEMP 98.2; O2SAT 93
[2020-08-29] MEDS: ATORVASTATIN 40 MG TAB PO SCH (08:10)
[2020-08-29] MEDS: CYANOCOBALAMIN 500 MCG TABLET (VITAMIN B-12) PO SCH (08:10)
[2020-08-29] MEDS: amLODIPine BESYLATE 5 MG TAB PO SCH (08:10)
[2020-08-29 08:12] LABS: BUN Creatinine Ratio 21.9 (10-20); Calcium 7.9 mg/dl (8.5-10.1); Creatinine Clr Calc Pharmacy 89.8 ml/min; Est GFR (African American) 100.2 ml/min; Est GFR (Non-African American) 86.5 ml/min; Potassium 3.9 mmol/L (3.5-5.1)
[2020-08-29] MEDS ORDERED: METOPROLOL TARTRATE 25 MG TAB PO STA (13:28)
[2020-08-29 15:05] VITALS: BP 164/75
--- NOTE | 2020-08-29 16:38 | Gastroenterology Progress Note ---
Date of Service August 29, 2020 Assessment & Plan (1) Acute pancreatitis: (2) Choledocholithiasis: Plan: s/p ERCP with sphincterotomy, stone removal and stent placement. Doing much better today Advance diet as tolerated If tolerates advanced diet, may D/C to home Lipase trending down Advised to followup with Dr. Bonner as scheduled Admission and Anticipated Discharge Date Admission Date: August 27, 2020 Subjective Feeling better today, without abdominal pain. Inquires about advancing his diet. Denies fevers, chills, nausea, vomiting, or other complaints. Review of Systems Constitutional: as per Subjective / HPI Eyes: as per Subjective / HPI Ear, Nose, Mouth, Throat: as per Subjective / HPI Respiratory: as per Subjective / HPI Cardiovascular: as per Subjective / HPI Gastrointestinal: as per Subjective / HPI Musculoskeletal: as per Subjective / HPI Integumentary: as per Subjective / HPI Neurologic: as per Subjective / HPI Psychiatric: as per Subjective / HPI Endocrine: as per Subjective / HPI Hematologic / Lymphatic: as per Subjective / HPI Allergy / Immunological: as per Subjective / HPI Physical Exam Constitutional: WD/WN, vitals as above Respiratory: normal respiratory effort, lungs clear to auscultation Cardiovascular: RRR, no murmur, no edema Gastrointestinal (Abdomen): normal bowel sounds, soft, nontender, no hepat osplenomegaly Psychiatric: A+Ox3, euthymic affect Results & Data Results & Data ([facility]) Vital Signs (Past 12 Hours) Vital Signs Temp Pulse Pulse Resp BP BP Pulse Ox 08/29/20 15:48 70 08/29/20 15:04 63 164/75 H 08/29/20 11:48 70 157/73 H 08/29/20 11:44 36.8 C 70 18 157/73 H 93 08/29/20 07:33 67 08/29/20 07:00 36.8 C 67 18 153/76 H 93 08/29/20 05:51 69 133/78 PG Care Time/CCT Total # of Minutes Spent Total Time Spent with Patient: Total time spent is greater than 50% in coordination of care (as documented) at patient's floor/unit and/or counseling patient: Coding Level of Care Code 22068 Subseq Hosp Care Lvl 2 Diagnoses Acute pancreatitis K85.90 Acute pancreatitis complication: unspecified Pancreatitis type: unspecified pancreatitis type Choledocholithiasis K80.50 (1) Acute pancreatitis Acute pancreatitis complication: unspecified Pancreatitis type: unspecified pancreatitis type Qualified Code(s): K85.90 - Acute pancreatitis without necrosis or infection, unspecified
[2020-08-29] MEDS ORDERED: CIPROFLOXACIN 500 MG TAB PO ONE (17:00)
--- NOTE | 2020-08-29 18:55 | Discharge Summary ---
Date of Service date of admission - August 27, 2020 date of discharge - 2020 Admission HPI Per Admitting Provider 80-year-old male past medical history significant for CAD status post stent, prostate cancer, BPH, hypertension, hyperlipidemia presented to the ER for abdominal pain with associated nausea and vomiting since 5 PM today. No recent fevers or chills, sick contacts, intake of spoiled food, shortness of breath, chest pain, dizziness or headaches, diarrhea. Patient denies urinary symptoms such as hematuria, urinary urgency or frequency, dysuria. In the ER patient's lab work revealed lipase elevated to 27,000, and a CTAP which showed findings suggestive of pancreatitis. Was also incidentally noted to have markedly enlarged prostate. Hospitalist service was consulted for admission. Principal Diagnosis 1. acute gallstone pancreatitis 2. choledocholithiasis Discharge Exam Constitutional well developed and well nourished; no acute distress and no altered mental status Eyes no conjunctival abnormality and no scleral abnormality ENMT external ear and nose normal, oropharynx normal Respiratory normal respiratory effort, lungs clear to auscultation Cardiovascular Rate/Rhythm: regular rate and regular rhythm Heart Sounds: normal S1 and normal S2 Vessels: posterior tibial pulses present and dorsalis pedis pulses present; no JVD Extremities: no edema Gastrointestinal (Abdomen) normal bowel sounds, soft, nontender, no hepatosplenomegaly Psychiatric A+Ox3, euthymic affect Discharge Data Allergies Allergy/AdvReac Type Severity Reaction Status Date / Time No Known Drug Allergies Allergy Verified 09/02/20 09:31 Consultations [facility] Gastroenterology Procedures Performed Operation Date: 08/28/20 13:40 Actual Procedures p Endoscopic Retrograde Cholangiopancreatoscopy, insertion stent, biopsy - Efren Bonner DO - The major papilla appeared to be enlarged, inflamed and congested (perhaps as result of pancreatitis and an impacted stone. - Biopsies were taken with a cold forceps for histology in the area of the papilla. - Choledocholithiasis was found. Complete removal was accomplished by biliary sphincterotomy and balloon extraction. - One double pigtail biliary stent was placed into the common bile duct. - Indomethacin given to decrease risk of post-ERCP pancreatitis. Ordered Studies Abdomen/Pelvis CT 08/26/20 21:46 CT SCAN OF THE ABDOMEN AND PELVIS WITH IV CONTRAST CLINICAL HISTORY: Epigastric abdominal pain. COMPARISON STUDY: Abdominal CT dated 08/06/2012. TECHNIQUE: Following the IV administration of 93 cc of Optiray 320, CT scan of the abdomen and pelvis is performed from the lung bases to the proximal femora. Images are reviewed in the axial, sagittal, and coronal planes. IV contrast was administered without complication. A dose lowering technique was utilized adhering to the principles of ALARA. CT DOSE: 354.54 mGy.cm FINDINGS: Lung bases: The heart is mildly enlarged and without pericardial effusion. There are coronary artery calcifications. A small hiatal hernia is noted. Emphysematous change is noted at the lung bases. There is bibasilar scarring/atelectasis. No airspace consolidation or pleural effusion is identified. Liver: The contrast-enhanced liver is normal in size, contour, and attenuation. There is mild to moderate intrahepatic biliary ductal dilatation. The hepatic veins and portal veins are patent. A subcentimeter hypodensity in the right lobe likely represents a cyst but is too small for definitive characterization. This is been present dating back to 2012 and is of doubtful significance. Gallbladder: Surgically absent. Spleen: Normal in size and attenuation. Pancreas: The pancreas appears enlarged and edematous. There is peripancreatic inflammation and fluid consistent with acute pancreatitis. The gland enhances homogeneously. No organized peripancreatic fluid collection is identified. The splenic vein is patent. Adrenal glands: Unremarkable. Kidneys: The contrast enhanced kidneys demonstrate cortical atrophy and are without hydronephrosis. The kidneys enhance symmetrically. A subcentimeter cortical hypodensity arising from the interpolar right kidney likely represents a cyst but is too small for definitive characterization. Abdominal vasculature: There is advanced atherosclerotic calcification and mild ectasia of the abdominal aorta. Bowel: There is moderate constipation. No bowel obstruction is seen. There is advanced colonic diverticulosis without CT evidence of acute diverticulitis. The appendix is not identified and reported surgically absent. Peritoneum: There is no intraperitoneal free air or abdominal ascites. There is a fat-containing umbilical hernia. Lymphadenopathy: None. Pelvic viscera: The prostate gland is markedly enlarged and heterogeneous, measuring 6.8 cm transverse diameter. Metallic clips are noted in the prostate. There is medial hypertrophy. The bladder wall is thickened and trabeculated indicating chronic outlet obstruction. Pericystic inflammation is noted. Skeletal structures: The skeletal structures are osteopenic. There is mild lumbosacral spondylosis. No lytic or blastic lesions are seen. IMPRESSION: 1. Findings are consistent with acute pancreatitis. Correlate with clinical findings and serum amylase/lipase levels. 2. The pancreas enhances homogeneously and there is no organized peripancreatic fluid collection. 3. There is mild to moderate intrahepatic biliary ductal dilatation, nonspecific noting status post cholecystectomy. 4. The prostate gland is markedly enlarged and heterogeneous. 5. There is pericystic inflammation. Correlate with clinical findings and urinalysis. 6. Moderate constipation. 7. Advanced colonic diverticulosis without CT evidence of acute diverticulitis. 8. Cardiomegaly. 9. Additional findings as above. ACT 112: Negative or not required by law. Electronically signed by: Nabil Galvez M.D. 08/26/2020 10:45 PM Cholangiopancreatography MRI 08/27/20 08:47 MR MRCP HISTORY: 80 years-old Male acute pancreatitis/biliary ductal dilation on CT acute right upper quadrant abdominal pain with reported pancreatitis COMPARISON: CT abdomen and pelvis 08/26/2020 TECHNIQUE: MRCP without the use of IV contrast was obtained according to institutional protocol. FINDINGS: Mild dependent bibasilar atelectasis. Mild cardiomegaly. Scattered areas of decreased T2 signal noted throughout the spleen which is nonspecific and likely benign. Unremarkable adrenal glands. Nonspecific bilateral perinephric stranding. Exophytic 11 mm cyst of the posterior inferior pole right kidney. No hydronephrosis. No aortic aneurysm. No adenopathy. No bowel dilation. Small hiatal hernia. 8 mm T2 hyperintense lesion of the right hepatic lobe is suggestive of a probable cyst. Mild intrahepatic and extrahepatic biliary ductal dilation is noted with the common bile duct measuring up to 7 mm. Study is motion degraded. Cholecystectomy. Interstitial and peripancreatic edema with small amount of fluid within the lesser sac. Small right ascites tracks along the pericolic gutters and also within the perihepatic space. No pancreatic ductal dilation. There is a 6 mm area of decreased T2 signal noted within the distal common bile duct. IMPRESSION: 1. Findings compatible with acute interstitial edematous pancreatitis. No pancreatic ductal dilation. 2. Cholecystectomy with mild intrahepatic and extrahepatic biliary ductal dilation. 3. 6 mm filling defect within the distal common bile duct is suspicious for choledocholithiasis. Findings were discussed with Dr. Rm on 08/28/2020 at 10:54 AM ACT 112: Negative or not required by law. The above report was generated using voice recognition software. It may contain grammatical, syntax or spelling errors. Electronically signed by: Donnell Walker M.D. 08/28/2020 10:57 AM Endo Retro Cholangiopancreatogram 08/28/20 00:00 [place] ERCP biliary ductal CLINICAL HISTORY: ERCP IN OR COMPARISON STUDY: CT of the abdomen and pelvis August 26, 2020. MRCP August 27, 2020. FLUOROSCOPY TIME: 1 minute and 20 seconds. FLUOROSCOPIC IMAGES: 12 FINDINGS: Fluoroscopy was provided during ERCP. The common bile duct was cannulated. Balloon sweep through the common bile duct was performed with placement of a biliary stent. IMPRESSION: Fluoroscopy provided during ERCP with placement of a biliary stent. ACT 112: Negative or not required by law. Electronically signed by: Tone Bain M.D. 08/28/2020 7:00 PM Hospital Course (1) Acute pancreatitis: 2nd to gallstones. Treated in the customary fashion with copious IV fluids, pain meds, and NPO status. Abdominal pain resolved within 24 hours of discharge. MRCP confirmed the presence of distal choledocholithiasis. Peak lipase - 27,600. Lipase improved to <1000 before discharge. Following his ERCP (see below) he was resumed on clear liquids, advanced, and tolerated such. At discharge he was advised to follow a low-fat diet for 10 days, avoid alcohol, and avoid NSAIDs for 3 days post-discharge. (2) Choledocholithiasis: as seen on MRCP. [facility] GI consulted - ERCP performed by Dr Efren Bonner. 2 CBD stones extracted, stent deployed; no evidence of cholangitis. 5 days of antibiotics recommended post-ERCP. No NSAIDs for 3 days post-ERCP. Will need stent retrieved in 6 weeks - [facility] to arrange. (3) Coronary artery disease: no ischemic symptoms during the visit. He will continue toprol xl, statin, and aspirin. (4) Hyperlipidemia: on statin (5) Enlarged prostate with lower urinary tract symptoms (LUTS): stable, no issues while here. Total Time Total Time Spent Total Time Spent (In Minutes): 35 Discharge Plan Discharge Items Patient Disposition: Home - Self-Care Reason For Visit: ACUTE PANCREATITIS Discharge Diagnosis: 1. acute gallstone pancreatitis - resolved. 2. choledocholithiasis (gallstones in the bile duct) - resolved via extraction of stones during ERCP procedure. Activity: As commented below Activity Comment: gradually increase activities over the next 3-4 days Sexual Activity: Wait until after follow-up appointment Exercise/Sports: Wait until after follow-up appointment Driving/Machine Use: Resume 1 day after discharge Non-emergency contact: Primary Care Provider and Local Area Network Administrator Call non-emergency contact if: you have any medication questions, your symptoms worsen, your pain is not controlled, your pain is worsening, your pain is unusual for you, your pain is concerning for you and you have a fever Follow-up/Referrals: Chalo Barnes MD [Primary Care Provider] - (see Dr Barnes within 5 days ) Efren Bonner DO [Physician] - (see Dr Bonner in 6 weeks for removal of bile duct stent ) Diet: Full liquid Addtl Attending Provider Instructions: Daniel Alcaraz were treated at [facility] for acute pancreatitis. Pancreatitis is a condition in which the pancreas becomes severely inflamed. There are various causes of pancreatitis with alcohol and gallstones being the top 2 causes of such. In your case the pancreatitis was caused by gallstones that had become lodged in the common bile duct. [facility] Anam [facility], and he performed a procedure called "ERCP." See handout for details regarding an ERCP. He found 2 gallstones that had blocked your bile duct. These were removed and a stent was placed in the bile duct. Following your procedure we placed you back on a clear liquid diet and you tolerated this well. We then advanced your diet to "full liquids" and you also tolerated this well. Recommendations - 1. Full liquids diet for another 24 hours (see handout). 2. Starting late tomorrow night into Monday you may start to reintroduce low-fat solid foods into your diet. See "low-fat diet" handout. Go slowly with this. Going slowly decreases the chance of re-inflaming the pancreas. 3. Eat a low-fat diet for 10 days. After that you may resume normal diet. 4. Take ciprofloxacin antibiotic 500mg twice daily for 4 more days. Take your first dose tomorrow morning. 5. Start metoprolol succinate - 25mg once daily. Start tomorrow morning. This is for your heart and blood pressure. 6. HOLD your aspirin until the morning of 09/01/20. At that time you can resume your baby aspirin 81mg. 7. Do not take any anti-inflammatory pills such as motrin, ibuprofen, alleve, naprosyn, etc until 09/01/20. 8. Tylenol is ok to take for any pain or discomforts. Ok to take this upon return home right away. 9. See Dr Bonner in 6 weeks to have the stent removed from the bile duct. 10. For any constipation may take [id number] miralax once daily. Follow-up - see separate section Return to [facility] if - * you have recurrent abdominal pain * you see yellowing of the whites of the eyes * you have vomiting * you are unable to eat or drink * any other concerns It was our pleasure caring for you at [facility]! -Dr Shaw Pending Studies at Discharge: No Stand-Alone Forms: My [facility], Smoking Cessation Medications and DC Order Prescriptions: New metoprolol succinate 25 mg tablet extended release 24 hr 25 mg PO DAILY Qty: 30 RF: 2 Continued amlodipine 5 mg tablet 5 mg PO DAILY Qty: 90 RF: 3 atorvastatin 40 mg tablet 40 mg PO DAILY Qty: 90 RF: 3 cyanocobalamin (vitamin B-12) [Vitamin B-12] 1,000 mcg Tablet 1,000 mcg PO DAILY RF: 0 aspirin 81 mg Capsule,Delayed Release(Dr/Ec) 81 mg PO DAILY RF: 0 Discharge Orders: Discharge Order (Routine); Ordered 08/29/20 Ordered By: Cam Phillips/Other Patient Handouts: ERCP Endoscopic Retrograde ..., Understanding Pancreatitis, Full Liquid Diet Dc, ED Diet, Low Fat Admission Data Admit Date/Time: 08/27/20 00:43 Attending Provider: Cam Shaw Admit Provider: Kanwal Boyd Primary Care Provider: Chalo Barnes Other Providers: Efren Bonner ; Mayo Pritchard Other Interventions: Discharge Summary Assessment (RN) Last Done: 08/29/20 19:04 Coding Level of Care Code D/C DAY MANAGEMENT >30 MINS Diagnoses Acute pancreatitis K85.90 Acute pancreatitis complication: unspecified Pancreatitis type: unspecified pancreatitis type Choledocholithiasis K80.50 Coronary artery disease I25.10 Associated angina: without angina Coronary Disease-Associated Artery/Lesion type: ruby artery [place] vs. transplanted heart: ruby heart Hyperlipidemia E78.00; E78.0 Hyperlipidemia type: pure hypercholesterolemia Enlarged prostate with lower urinary tract symptoms (LUTS) N40.1
[2020-08-29 19:05] VITALS: PULSE 63
== END 2020-08-29 19:19 | disposition home or self-care (01) | DRG 444 ==
LOC: ED 20:27 → EDINP 08-27 00:43 → SUATTDRO 08-27 00:43 → 2N 08-27 10:25
DX: I25.10 Atherosclerotic heart disease of native coronary artery without angina pectoris; Z92.3 Personal history of irradiation; Z90.49 Acquired absence of other specified parts of digestive tract; Z95.5 Presence of coronary angioplasty implant and graft; Z82.49 Family history of ischemic heart disease and other diseases of the circulatory system; K80.51 Calculus of bile duct without cholangitis or cholecystitis with obstruction; I25.2 Old myocardial infarction; Z85.46 Personal history of malignant neoplasm of prostate; Z77.22 Contact with and (suspected) exposure to environmental tobacco smoke (acute) (chronic); Z79.899 Other long term (current) drug therapy; K85.10 Biliary acute pancreatitis without necrosis or infection; K29.80 Duodenitis without bleeding; N13.8 Other obstructive and reflux uropathy; K56.7 Ileus, unspecified; I10 Essential (primary) hypertension; E78.5 Hyperlipidemia, unspecified; Z51.81 Encounter for therapeutic drug level monitoring; Z79.82 Long term (current) use of aspirin; N40.1 Benign prostatic hyperplasia with lower urinary tract symptoms; Z80.42 Family history of malignant neoplasm of prostate